=== PATIENT | male | born 1975 | race Caucasian/White ===

== ENCOUNTER → 2023-04-25 | Outpatient (CLI) | payer BC, OTHER ==
[~2023-04-25] MED LIST: MOTR200T4; RYZOLT
== END ==
LOC: M SLEEP HO 10:34
PROVIDERS: ATTEND Nurse Practitioner Family
DX: R40.0 Somnolence (principal)

== ENCOUNTER 2023-07-20 10:54 | Day surgery (SDC) | payer BC, OTHER ==
[~2023-07-20] VITALS: Ht 180.3 cm; Wt 112.9 kg
[~2023-07-20 10:54] MED LIST changes: +ECOT81TA5 PO; +MELO15TA28 PO; +METO1TAB33 PO
[2023-07-20] MEDS: NS 1,000 ML IV ONE (11:09)
[2023-07-20] MEDS ORDERED: propofoL 200 MG/20 ML VIAL As Ordered ONE (11:50)
[2023-07-20 12:59] VITALS: TEMP 97.5
[2023-07-20 13:19] VITALS: BP 160/93; O2SAT 95
== END 2023-07-20 13:22 | disposition home or self-care (01) ==
LOC: M OPP 10:54
PROVIDERS: ATTEND Internal Medicine Gastroenterology
DX: Z12.11 Encounter for screening for malignant neoplasm of colon (principal); D12.6 Benign neoplasm of colon, unspecified; K63.89 Other specified diseases of intestine; K64.4 Residual hemorrhoidal skin tags; K64.8 Other hemorrhoids; K22.89 Other specified disease of esophagus; K29.70 Gastritis, unspecified, without bleeding; K20.0 Eosinophilic esophagitis; R13.10 Dysphagia, unspecified; I48.91 Unspecified atrial fibrillation; G47.30 Sleep apnea, unspecified; Z79.1 Long term (current) use of non-steroidal anti-inflammatories (NSAID); Z79.82 Long term (current) use of aspirin; Z79.899 Other long term (current) drug therapy

== ENCOUNTER → 2023-08-07 | Outpatient (CLI) | payer BC, OTHER | LOC: M SLEEP 20:00 | PROVIDERS: ATTEND Nurse Practitioner Family | DX: G47.33 Obstructive sleep apnea (adult) (pediatric) (principal) ==

== ENCOUNTER 2023-10-18 09:31 | Day surgery (SDC) | payer BC ==
[~2023-10-18] VITALS: Ht 180.3 cm; Wt 135.3 kg
[2023-10-18] MEDS: NS 1,000 ML IV ONE (06:00)
[~2023-10-18 09:31] MED LIST changes: +OMEP40CA5 PO; +SUCR1TAB56 PO
[2023-10-18] MEDS ORDERED: fentaNYL 100 MCG/2 ML INJECTION As Ordered ONE (10:27)
[2023-10-18] MEDS ORDERED: propofoL 200 MG/20 ML VIAL As Ordered ONE (10:27)
[2023-10-18 11:36] VITALS: TEMP 97.5
[2023-10-18 11:58] VITALS: BP 158/94; O2SAT 98
== END 2023-10-18 12:08 | disposition home or self-care (01) ==
LOC: M OPP 09:31
PROVIDERS: ATTEND Internal Medicine Gastroenterology
DX: K22.89 Other specified disease of esophagus (principal); K29.70 Gastritis, unspecified, without bleeding; R07.89 Other chest pain; G47.30 Sleep apnea, unspecified; Z99.89 Dependence on other enabling machines and devices; I48.91 Unspecified atrial fibrillation; I10 Essential (primary) hypertension; Z79.82 Long term (current) use of aspirin; Z79.899 Other long term (current) drug therapy; F17.220 Nicotine dependence, chewing tobacco, uncomplicated
CPT/HCPCS: 43239; 88305; J3010

== ENCOUNTER 2023-10-31 13:27 | Emergency (ER) | payer BC ==
[~2023-10-31] VITALS: Ht 180.3 cm; Wt 113.0 kg
[2023-10-31] MEDS ORDERED: LISI10TA24 (14:08)
[2023-10-31 14:47] LABS: BASO # 0.1 10^3/uL (0.0-0.2); BASO % 0.6 % (0.0-1.0); EOS # 0.2 10^3/uL (0.0-0.5); EOS % 2.8 % (0.0-3.0); HEMOGLOBIN 15.7 g/dl (13.5-17.5); LYMPH # 1.5 10^3/uL (1.5-5.0); LYMPH % 19.1 % (24.0-44.0); MEAN CORPUSCULAR HEMOGLOBIN 31.3 pg (27.0-33.0); MEAN CORPUSCULAR HGB CONC 34.9 g/dl (32.0-36.5); MEAN CORPUSCULAR VOLUME 89.6 fl (80.0-96.0); MONO # 0.6 10^3/uL (0.0-0.8); MONO % 7.4 % (2.0-8.0); NEUTROPHILS # 5.4 10^3/uL (1.5-8.5); NEUTROPHILS % 69.7 % (36.0-66.0); PLATELET COUNT, AUTOMATED 238 10^3/uL (150-450); RED BLOOD COUNT 5.02 10^6/uL (4.30-6.10); WHITE BLOOD COUNT 7.7 10^3/uL (4.0-10.0)
[2023-10-31 15:14] LABS: ALBUMIN 3.9 G/DL (3.2-5.2); ALKALINE PHOSPHATASE 80 U/L (46-116); ALT/SGPT 25 U/L (7.0-40); AST/SGOT 16 U/L (<34); BILIRUBIN,TOTAL 1.1 MG/DL (0.3-1.2); BLOOD UREA NITROGEN 10 MG/DL (9-23); CALCIUM LEVEL 9.3 MG/DL (8.5-10.1); CARBON DIOXIDE LEVEL 29 MMOL/L (20-31); CHLORIDE LEVEL 106 MMOL/L (98-107); CREATININE FOR GFR 0.77 MG/DL (0.70-1.30); GLOMERULAR FILTRATION RATE > 60.0 (>56); GLUCOSE, FASTING 107 MG/DL (60-100); POTASSIUM SERUM 3.6 MMOL/L (3.5-5.1); SODIUM LEVEL 142 MMOL/L (136-145); TOTAL PROTEIN 7.3 G/DL (5.7-8.2)
[2023-10-31] MEDS ORDERED: ISOVUE-370 76% 100ML VIAL As Ordered ONE (16:29)
[2023-10-31 16:46] LABS: CK-MB VALUE MASS < 1.0 NG/ML (<3.6)
[2023-10-31 16:48] LABS: CPK CREATINE PHOSPHOKINASE 105 U/L (46-171); MB/CK RELATIVE INDEX 0.95 (< OR =4)
[2023-10-31 16:50] LABS: THYROID STIMULATING HORMONE 1.932 uIU/ML (0.55-4.78)
[2023-10-31 16:51] LABS: FREE T4 1.07 NG/DL (0.89-1.76)
[2023-10-31 17:09] LABS: CK-MB VALUE MASS < 1.0 NG/ML (<3.6)
[2023-10-31 17:15] LABS: CPK CREATINE PHOSPHOKINASE 114 U/L (46-171); MB/CK RELATIVE INDEX 0.87 (< OR =4)
[2023-10-31 17:45] VITALS: BP 142/88; TEMP 97.6; O2SAT 95
== END 2023-10-31 17:57 | disposition home or self-care (01) ==
LOC: M ED 13:27
DX: I10 Essential (primary) hypertension (principal); I48.91 Unspecified atrial fibrillation; K21.9 Gastro-esophageal reflux disease without esophagitis; F41.9 Anxiety disorder, unspecified; F17.220 Nicotine dependence, chewing tobacco, uncomplicated; Z79.82 Long term (current) use of aspirin; Z79.899 Other long term (current) drug therapy
CPT/HCPCS: 71275; 74177; 80053; 82550; 82553; 84439; 84443; 84484; 85025; 93005; 99284; Q9967

== ENCOUNTER 2024-02-12 05:19 | Emergency (ER) | payer BC ==
[~2024-02-12] VITALS: Ht 180.3 cm; Wt 112.5 kg
[~2024-02-12 05:19] MED LIST changes: +LISI10TA24 PO
[2024-02-12 05:58] LABS: BASO # 0.1 10^3/uL (0.0-0.2); BASO % 0.7 % (0.0-1.0); EOS % 10.8 % (0.0-3.0); HEMOGLOBIN 14.4 g/dl (13.5-17.5); LYMPH # 1.6 10^3/uL (1.5-5.0); LYMPH % 17.4 % (24.0-44.0); MEAN CORPUSCULAR HGB CONC 33.5 g/dl (32.0-36.5); MEAN CORPUSCULAR VOLUME 92.5 fl (80.0-96.0); MONO # 0.6 10^3/uL (0.0-0.8); MONO % 6.7 % (2.0-8.0); NEUTROPHILS # 5.8 10^3/uL (1.5-8.5); PLATELET COUNT, AUTOMATED 243 10^3/uL (150-450); RED BLOOD COUNT 4.65 10^6/uL (4.30-6.10); WHITE BLOOD COUNT 9.1 10^3/uL (4.0-10.0)
[2024-02-12 06:01] LABS: APPEARANCE, URINE CLEAR (CLEAR); BACTERIA, URINE AUTO NEGATIVE (NEGATIVE); BILIRUBIN, URINE AUTO NEGATIVE (NEGATIVE); BLOOD, URINE BLOOD NEGATIVE (NEGATIVE); COLOR, URINE STRAW (YELLOW); GLUCOSE, URINE (UA) AUTO NEGATIVE (NEGATIVE); KETONE, URINE AUTO NEGATIVE (NEGATIVE); LEUKOCYTE ESTERASE, URINE AUTO NEGATIVE (NEGATIVE); NITRITE, URINE AUTO NEGATIVE (NEGATIVE); PROTEIN, URINE AUTO NEGATIVE (NEGATIVE); RBC, URINE AUTO 0 /HPF (0-3); SPECIFIC GRAVITY URINE AUTO 1.008 (1.002-1.035); SQUAMOUS EPITHELIAL CELL UR AU 0 /HPF (0-6); UROBILINOGEN, URINE AUTO 0.2 mg/dL (0.0-2.0); WBC, URINE AUTO 0 /HPF (0-3)
[2024-02-12 06:22] LABS: ALBUMIN 3.8 G/DL (3.2-5.2); ALKALINE PHOSPHATASE 85 U/L (46-116); ALT/SGPT 27 U/L (7.0-40); AST/SGOT 18 U/L (<34); BILIRUBIN,DIRECT 0.2 MG/DL (<0.4); BILIRUBIN,TOTAL 0.5 MG/DL (0.3-1.2); BLOOD UREA NITROGEN 19 MG/DL (9-23); CALCIUM LEVEL 9.1 MG/DL (8.5-10.1); CARBON DIOXIDE LEVEL 31 MMOL/L (20-31); CHLORIDE LEVEL 104 MMOL/L (98-107); CREATININE FOR GFR 0.85 MG/DL (0.70-1.30); GLOMERULAR FILTRATION RATE > 60.0 (>56); GLUCOSE, FASTING 135 MG/DL (60-100); POTASSIUM SERUM 3.6 MMOL/L (3.5-5.1); SODIUM LEVEL 138 MMOL/L (136-145); TOTAL PROTEIN 7.6 G/DL (5.7-8.2)
[2024-02-12] MEDS ORDERED: MULT-40 PO (08:48)
[2024-02-12] MEDS ORDERED: OMEP-173 PO (08:48)
[2024-02-12] MEDS ORDERED: HOME MED LIST COMPLETE! XX SCH (08:50)
[2024-02-12 10:05] VITALS: BP 133/87; TEMP 97.2; O2SAT 98
== END 2024-02-12 10:07 | disposition home or self-care (01) ==
LOC: M ED 05:19
DX: I10 Essential (primary) hypertension (principal); I48.0 Paroxysmal atrial fibrillation; F41.9 Anxiety disorder, unspecified

== ENCOUNTER → 2024-07-17 | Outpatient (CLI) | payer BC ==
[~2024-07-17] MED LIST changes: +MULT-40 PO; +OMEP-173 PO
== END ==
LOC: M RAD 15:35
PROVIDERS: ATTEND Internal Medicine
DX: R19.02 Left upper quadrant abdominal swelling, mass and lump (principal); R10.12 Left upper quadrant pain

== ENCOUNTER 2024-08-27 17:02 | Emergency (ER) | payer BC ==
[~2024-08-27] VITALS: Ht 180.3 cm; Wt 114.8 kg
[2024-08-27 17:32] LABS: BASO # 0.1 10^3/uL (0.0-0.2); BASO % 0.6 % (0.0-1.0); EOS # 0.2 10^3/uL (0.0-0.5); EOS % 2.6 % (0.0-3.0); HEMATOCRIT 44.2 % (42.0-52.0); HEMOGLOBIN 14.9 g/dl (13.5-17.5); LYMPH % 22.5 % (24.0-44.0); MEAN CORPUSCULAR HEMOGLOBIN 31.4 pg (27.0-33.0); MEAN CORPUSCULAR HGB CONC 33.7 g/dl (32.0-36.5); MEAN CORPUSCULAR VOLUME 93.1 fl (80.0-96.0); MONO # 0.6 10^3/uL (0.0-0.8); MONO % 6.8 % (2.0-8.0); NEUTROPHILS # 5.9 10^3/uL (1.5-8.5); NEUTROPHILS % 67.3 % (36.0-66.0); PLATELET COUNT, AUTOMATED 282 10^3/uL (150-450); RED BLOOD COUNT 4.75 10^6/uL (4.30-6.10); WHITE BLOOD COUNT 8.8 10^3/uL (4.0-10.0)
[2024-08-27 18:05] LABS: LIPASE 38 U/L (12-53)
[2024-08-27 18:07] LABS: ALKALINE PHOSPHATASE 72 U/L (40-129); ALT/SGPT 29 U/L (7.0-40); AST/SGOT 23 U/L (<34); BILIRUBIN,DIRECT 0.1 MG/DL (<0.4); BILIRUBIN,TOTAL 0.5 MG/DL (0.3-1.2); BLOOD UREA NITROGEN 11 MG/DL (9-23); CALCIUM LEVEL 9.2 MG/DL (8.5-10.1); CARBON DIOXIDE LEVEL 31 MMOL/L (20-31); CHLORIDE LEVEL 102 MMOL/L (98-107); CK-MB VALUE MASS < 1.0 NG/ML (<3.6); CREATININE FOR GFR 0.92 MG/DL (0.70-1.30); GLOMERULAR FILTRATION RATE > 90.0 (>56); GLUCOSE, FASTING 103 MG/DL (60-100); POTASSIUM SERUM 3.6 MMOL/L (3.5-5.1); SODIUM LEVEL 140 MMOL/L (136-145); TOTAL PROTEIN 7.7 G/DL (5.7-8.2)
[2024-08-27 18:09] LABS: FREE T4 1.16 NG/DL (0.89-1.76); THYROID STIMULATING HORMONE 1.873 uIU/ML (0.55-4.78)
[2024-08-27 18:17] LABS: CPK CREATINE PHOSPHOKINASE 95 U/L (46-171); MB/CK RELATIVE INDEX 1.05 (< OR =4)
[2024-08-27 19:09] LABS: CK-MB VALUE MASS < 1.0 NG/ML (<3.6)
[2024-08-27 19:12] LABS: CPK CREATINE PHOSPHOKINASE 88 U/L (46-171); MB/CK RELATIVE INDEX 1.13 (< OR =4)
[2024-08-27] MEDS ORDERED: ISOVUE-370 76% 100ML VIAL As Ordered ONE (19:25)
[2024-08-27 21:45] VITALS: BP 124/71; O2SAT 96
[2024-08-27 21:54] VITALS: TEMP 98.6
== END 2024-08-27 21:53 | disposition home or self-care (01) ==
LOC: M ED 17:02
DX: R07.9 Chest pain, unspecified (principal); I48.91 Unspecified atrial fibrillation; I10 Essential (primary) hypertension; K21.9 Gastro-esophageal reflux disease without esophagitis; F41.9 Anxiety disorder, unspecified; Z79.82 Long term (current) use of aspirin; Z79.899 Other long term (current) drug therapy
CPT/HCPCS: 70450; 71045; 71275; 72125; 80048; 80076; 82550; 82553; 83690; 83880; 84439; 84443; 84484; 85025; 85730; 93005; 99284; Q9967

== ENCOUNTER 2024-08-30 18:36 | Emergency (ER) | payer BC ==
[~2024-08-30] VITALS: Ht 180.3 cm; Wt 113.6 kg
[2024-08-30] MEDS ORDERED: AMLO1TAB24 (18:49)
[2024-08-30] MEDS ORDERED: OLME1TAB91 PO (18:49)
[2024-08-30 19:06] LABS: BASO % 0.5 % (0.0-1.0); EOS # 0.1 10^3/uL (0.0-0.5); EOS % 1.7 % (0.0-3.0); HEMATOCRIT 42.2 % (42.0-52.0); HEMOGLOBIN 14.6 g/dl (13.5-17.5); LYMPH # 1.4 10^3/uL (1.5-5.0); LYMPH % 17.3 % (24.0-44.0); MEAN CORPUSCULAR HEMOGLOBIN 31.1 pg (27.0-33.0); MEAN CORPUSCULAR HGB CONC 34.6 g/dl (32.0-36.5); MEAN CORPUSCULAR VOLUME 89.8 fl (80.0-96.0); MONO # 0.6 10^3/uL (0.0-0.8); MONO % 7.6 % (2.0-8.0); NEUTROPHILS # 5.8 10^3/uL (1.5-8.5); NEUTROPHILS % 72.7 % (36.0-66.0); PLATELET COUNT, AUTOMATED 241 10^3/uL (150-450)
[2024-08-30 19:31] LABS: ALBUMIN 3.8 G/DL (3.2-5.2); ALKALINE PHOSPHATASE 69 U/L (40-129); ALT/SGPT 28 U/L (7.0-40); AST/SGOT 17 U/L (<34); BILIRUBIN,DIRECT 0.2 MG/DL (<0.4); BILIRUBIN,TOTAL 0.5 MG/DL (0.3-1.2); BLOOD UREA NITROGEN 11 MG/DL (9-23); CALCIUM LEVEL 8.8 MG/DL (8.5-10.1); CARBON DIOXIDE LEVEL 30 MMOL/L (20-31); CHLORIDE LEVEL 102 MMOL/L (98-107); CK-MB VALUE MASS < 1.0 NG/ML (<3.6); CREATININE FOR GFR 0.91 MG/DL (0.70-1.30); GLOMERULAR FILTRATION RATE > 90.0 (>56); GLUCOSE, FASTING 128 MG/DL (60-100); POTASSIUM SERUM 3.5 MMOL/L (3.5-5.1); SODIUM LEVEL 138 MMOL/L (136-145); TOTAL PROTEIN 7.3 G/DL (5.7-8.2)
[2024-08-30 19:32] LABS: FREE T4 1.16 NG/DL (0.89-1.76)
[2024-08-30 19:33] LABS: THYROID STIMULATING HORMONE 1.614 uIU/ML (0.55-4.78)
[2024-08-30 19:35] LABS: CPK CREATINE PHOSPHOKINASE 62 U/L (46-171); MB/CK RELATIVE INDEX 1.61 (< OR =4)
[2024-08-30] MEDS: MIDAZOLAM INJ 2MG/2ML VIAL IV STA (20:47)
[2024-08-30] MEDS ORDERED: HYDR-643 PO (23:52)
[2024-08-31 00:11] VITALS: BP 138/82; TEMP 96.9; O2SAT 97
[2024-08-31] MEDS: MIDAZOLAM INJ 2MG/2ML VIAL IV ONE (00:16)
== END 2024-08-31 00:15 | disposition home or self-care (01) ==
LOC: EDBD 18:36 → M ED 18:36
DX: R07.89 Other chest pain (principal); G62.9 Polyneuropathy, unspecified; I48.91 Unspecified atrial fibrillation; I10 Essential (primary) hypertension; K21.9 Gastro-esophageal reflux disease without esophagitis; F17.220 Nicotine dependence, chewing tobacco, uncomplicated; Z79.82 Long term (current) use of aspirin; Z79.899 Other long term (current) drug therapy
CPT/HCPCS: 70551; 71045; 72141; 80048; 80076; 82550; 82553; 84439; 84443; 84484; 85025; 87486; 87581; 87633; 87798; 93005; 93041; 94760; 96374; 99285; J2250

== ENCOUNTER 2025-03-17 17:00 | Emergency (ER) | payer BC ==
[~2025-03-17] VITALS: Ht 180.3 cm; Wt 110.9 kg
[~2025-03-17 17:00] MED LIST changes: +AMLO1TAB24; +HYDR-643 PO; +OLME1TAB91 PO
[2025-03-17] MEDS ORDERED: OLME1TAB92 (17:12)
[2025-03-17 17:38] LABS: BASO # 0.1 10^3/uL (0.0-0.2); BASO % 0.5 % (0.0-1.0); EOS # 0.4 10^3/uL (0.0-0.5); EOS % 4.0 % (0.0-3.0); LYMPH # 1.8 10^3/uL (1.5-5.0); LYMPH % 18.9 % (24.0-44.0); MONO # 0.7 10^3/uL (0.0-0.8); MONO % 6.8 % (2.0-8.0); NEUTROPHILS # 6.7 10^3/uL (1.5-8.5); NEUTROPHILS % 69.5 % (36.0-66.0); PLATELET COUNT, AUTOMATED 254 10^3/uL (150-450)
[2025-03-17 17:58] LABS: CK-MB VALUE MASS < 1.0 NG/ML (<3.6)
[2025-03-17 18:00] LABS: CALCIUM LEVEL 9.3 MG/DL (8.5-10.1); CARBON DIOXIDE LEVEL 31 MMOL/L (20-31); CHLORIDE LEVEL 100 MMOL/L (98-107); CPK CREATINE PHOSPHOKINASE 66 U/L (46-171); CREATININE FOR GFR 0.91 MG/DL (0.70-1.30); GLOMERULAR FILTRATION RATE > 90.0 (>56); POTASSIUM SERUM 3.8 MMOL/L (3.5-5.1); SODIUM LEVEL 142 MMOL/L (136-145)
[2025-03-17] MEDS ORDERED: NITROGLYCERIN 0.4 MG SUBL TABLET SL PRN (18:15)
[2025-03-17] MEDS: ASPIRIN 81 MG CHEWABLE TABLET PO ONE (18:20)
[2025-03-17] MEDS ORDERED: ISOVUE-370 76% 100 ML VIAL As Ordered ONE (18:21)
[2025-03-17 18:30] LABS: ALT/SGPT 35 U/L (7.0-40); AST/SGOT 26 U/L (<34)
[2025-03-17 19:00] LABS: CK-MB VALUE MASS < 1.0 NG/ML (<3.6)
[2025-03-17 19:02] LABS: CPK CREATINE PHOSPHOKINASE 61 U/L (46-171)
[2025-03-17 20:30] VITALS: O2SAT 98
[2025-03-17 21:25] VITALS: BP 130/80; TEMP 96.2; O2SAT 95
== END 2025-03-17 21:32 | disposition home or self-care (01) ==
LOC: M ED 17:00
DX: I10 Essential (primary) hypertension (principal); S22.32XA Fracture of one rib, left side, initial encounter for closed fracture; X58.XXXA Exposure to other specified factors, initial encounter; Y92.9 Unspecified place or not applicable; Y93.9 Activity, unspecified; Y99.9 Unspecified external cause status; R91.8 Other nonspecific abnormal finding of lung field; K80.20 Calculus of gallbladder without cholecystitis without obstruction; K57.30 Diverticulosis of large intestine without perforation or abscess without bleeding; K76.89 Other specified diseases of liver; K21.9 Gastro-esophageal reflux disease without esophagitis; F17.290 Nicotine dependence, other tobacco product, uncomplicated; Z79.82 Long term (current) use of aspirin; Z79.899 Other long term (current) drug therapy
CPT/HCPCS: 70450; 71045; 71275; 74177; 80048; 80076; 82550; 82553; 83690; 83880; 84484; 85025; 87486; 87581; 87633; 87798; 93005; 93041; 94760; 99285; Q9967

== ENCOUNTER 2025-03-28 18:52 | Emergency (ER) | payer BC ==
[~2025-03-28 18:52] MED LIST changes: +OLME1TAB92
[2025-03-28 18:55] VITALS: TEMP 97.9
[2025-03-28 19:25] LABS: BASO # 0.1 10^3/uL (0.0-0.2); BASO % 0.6 % (0.0-1.0); EOS # 0.3 10^3/uL (0.0-0.5); EOS % 3.0 % (0.0-3.0); LYMPH # 2.2 10^3/uL (1.5-5.0); LYMPH % 21.2 % (24.0-44.0); MONO # 0.8 10^3/uL (0.0-0.8); MONO % 7.6 % (2.0-8.0); NEUTROPHILS # 6.8 10^3/uL (1.5-8.5); NEUTROPHILS % 67.3 % (36.0-66.0); PLATELET COUNT, AUTOMATED 240 10^3/uL (150-450)
[2025-03-28 19:53] LABS: CK-MB VALUE MASS < 1.0 NG/ML (<3.6)
[2025-03-28 19:55] LABS: ALT/SGPT 29 U/L (7.0-40); AST/SGOT 26 U/L (<34); CALCIUM LEVEL 8.8 MG/DL (8.5-10.1); CARBON DIOXIDE LEVEL 26 MMOL/L (20-31); CHLORIDE LEVEL 105 MMOL/L (98-107); CREATININE FOR GFR 0.84 MG/DL (0.70-1.30); GLOMERULAR FILTRATION RATE > 90.0 (>56); POTASSIUM SERUM 3.8 MMOL/L (3.5-5.1); SODIUM LEVEL 142 MMOL/L (136-145)
[2025-03-28 20:02] LABS: ETHYL ALCOHOL (ETHANOL) < 0.003 % (0.000-0.010)
[2025-03-28 20:03] LABS: SALICYLATE LEVEL < 3.0 MG/DL (<30)
[2025-03-28 20:07] LABS: CPK CREATINE PHOSPHOKINASE 98 U/L (46-171)
[2025-03-28 20:30] LABS: VENOUS BASE EXCESS 2.3 (-2.0-2.0); VENOUS HCO3 26.5 MMOL/L (23.0-27.0); VENOUS O2 SATURATION 94.6 % (60.0-80.0); VENOUS PARTIAL PRESSURE CO2 39.7 mmHg (38.0-50.0); VENOUS PARTIAL PRESSURE O2 70.4 mmHg (30.0-50.0); VENOUS PH 7.442 UNITS (7.330-7.430); VENOUS STANDARD HCO3 26.4 MMOL/L; VENOUS TOTAL CO2 27.7 MMOL/L (24.0-28.0)
[2025-03-28 20:39] LABS: MAGNESIUM LEVEL 2.0 MG/DL (1.8-2.4)
[2025-03-28] MEDS: NS (Normal Saline) 0.9% 1,000 ML IV ONE (20:41)
[2025-03-28 20:43] LABS: FREE T4 1.15 NG/DL (0.89-1.76)
[2025-03-28 22:12] LABS: KETONE, URINE AUTO RFX NEGATIVE (NEGATIVE); LEUKOCYTE ESTERASE UR AUTO RFX NEGATIVE (NEGATIVE); MUCUS, URINE RFX SMALL (NEGATIVE); NITRITE, URINE AUTO RFX NEGATIVE (NEGATIVE); RBC, URINE AUTO RFX 0 /HPF (0-3); SQUAM EPITHELIAL CELL UR AURFX 0 /HPF (0-6); WBC, URINE AUTO RFX 1 /HPF (0-3)
[2025-03-28 22:32] LABS: AMPHETAMINES LEVEL URINE NEGATIVE (NEGATIVE); BARBITURATES URINE NEGATIVE (NEGATIVE); BENZODIAZEPINES URINE NEGATIVE (NEGATIVE); CANNABINOIDS URINE NEGATIVE (NEGATIVE); COCAINE METABOLITE URINE NEGATIVE (NEGATIVE); METHADONE URINE NEGATIVE (NEGATIVE); OPIATES URINE NEGATIVE (NEGATIVE); PHENCYCLIDINE URINE NEGATIVE (NEGATIVE)
[2025-03-28 22:35] LABS: CK-MB VALUE MASS < 1.0 NG/ML (<3.6)
[2025-03-28 22:41] LABS: CPK CREATINE PHOSPHOKINASE 89 U/L (46-171)
[2025-03-28] MEDS ORDERED: HYDR-3363 PO (23:36)
[2025-03-29] VITALS: BP 149/89; O2SAT 95
== END 2025-03-29 00:18 | disposition home or self-care (01) ==
LOC: M ED 18:52
DX: I48.91 Unspecified atrial fibrillation (principal); F41.1 Generalized anxiety disorder; I10 Essential (primary) hypertension; K21.9 Gastro-esophageal reflux disease without esophagitis; K80.20 Calculus of gallbladder without cholecystitis without obstruction; R16.1 Splenomegaly, not elsewhere classified; Z79.899 Other long term (current) drug therapy
CPT/HCPCS: 70450; 71045; 71275; 80048; 80076; 80143; 80307; 81001; 82077; 82140; 82550; 82553; 82803; 83690; 83735; 84439; 84443; 84484; 85025; 93005; 93041; 94760; 96374; 99285; J2060

== ENCOUNTER 2025-04-12 20:23 | Emergency (ER) | payer BC ==
[~2025-04-12] VITALS: Ht 180.3 cm; Wt 110.2 kg
[~2025-04-12 20:23] MED LIST changes: +HYDR-3363 PO
[2025-04-12 20:57] LABS: BASO # 0.1 10^3/uL (0.0-0.2); BASO % 0.6 % (0.0-1.0); EOS # 0.3 10^3/uL (0.0-0.5); EOS % 3.0 % (0.0-3.0); LYMPH # 2.5 10^3/uL (1.5-5.0); LYMPH % 25.4 % (24.0-44.0); MONO # 0.7 10^3/uL (0.0-0.8); MONO % 7.5 % (2.0-8.0); NEUTROPHILS # 6.2 10^3/uL (1.5-8.5); NEUTROPHILS % 63.2 % (36.0-66.0); PLATELET COUNT, AUTOMATED 231 10^3/uL (150-450)
[2025-04-12 21:26] LABS: CK-MB VALUE MASS < 1.0 NG/ML (<3.6)
[2025-04-12 21:29] LABS: ALT/SGPT 33 U/L (7.0-40); AST/SGOT 27 U/L (<34); CALCIUM LEVEL 8.7 MG/DL (8.5-10.1); CARBON DIOXIDE LEVEL 29 MMOL/L (20-31); CHLORIDE LEVEL 103 MMOL/L (98-107); CREATININE FOR GFR 0.83 MG/DL (0.70-1.30); GLOMERULAR FILTRATION RATE > 90.0 (>56); INR 0.98; POTASSIUM SERUM 3.7 MMOL/L (3.5-5.1); SODIUM LEVEL 142 MMOL/L (136-145)
[2025-04-12 21:37] LABS: CPK CREATINE PHOSPHOKINASE 80 U/L (46-171)
[2025-04-12 21:56] LABS: C REACTIVE PROTEIN QUANTITATIV < 0.50 MG/DL (<1.0)
[2025-04-12] MEDS ORDERED: ISOVUE-370 76% 100 ML VIAL As Ordered ONE (22:26)
[2025-04-12 22:41] LABS: CK-MB VALUE MASS < 1.0 NG/ML (<3.6)
[2025-04-12 22:44] LABS: CPK CREATINE PHOSPHOKINASE 76 U/L (46-171)
[2025-04-13] MEDS ORDERED: METO5TAB2 PO (00:08)
[2025-04-13 00:23] VITALS: BP 137/83; TEMP 98.4; O2SAT 99
== END 2025-04-13 00:28 | disposition home or self-care (01) ==
LOC: M ED 20:23
DX: I10 Essential (primary) hypertension (principal); R07.89 Other chest pain; K80.20 Calculus of gallbladder without cholecystitis without obstruction; R16.1 Splenomegaly, not elsewhere classified; K76.0 Fatty (change of) liver, not elsewhere classified; I48.91 Unspecified atrial fibrillation; K21.9 Gastro-esophageal reflux disease without esophagitis; F41.1 Generalized anxiety disorder; G47.33 Obstructive sleep apnea (adult) (pediatric); Z79.82 Long term (current) use of aspirin; Z79.899 Other long term (current) drug therapy
CPT/HCPCS: 36415; 71045; 71275; 74177; 80048; 80076; 82550; 82553; 83880; 84443; 84484; 85025; 85610; 85652; 85730; 86140; 87486; 87581; 87633; 87798; 93005; 93041; 94760; 99285; Q9967

== ENCOUNTER 2025-04-15 15:29 | Emergency (ER) | payer BC ==
[~2025-04-15] VITALS: Ht 180.3 cm; Wt 106.7 kg
[~2025-04-15 15:29] MED LIST changes: +METO5TAB2 PO
[2025-04-15 16:26] LABS: BASO # 0.1 10^3/uL (0.0-0.2); BASO % 0.5 % (0.0-1.0); EOS # 0.2 10^3/uL (0.0-0.5); EOS % 1.8 % (0.0-3.0); LYMPH # 1.3 10^3/uL (1.5-5.0); LYMPH % 12.8 % (24.0-44.0); MONO # 0.6 10^3/uL (0.0-0.8); MONO % 6.1 % (2.0-8.0); NEUTROPHILS # 8.1 10^3/uL (1.5-8.5); NEUTROPHILS % 78.5 % (36.0-66.0); PLATELET COUNT, AUTOMATED 266 10^3/uL (150-450)
[2025-04-15 16:55] LABS: CK-MB VALUE MASS < 1.0 NG/ML (<3.6)
[2025-04-15 17:06] LABS: ALT/SGPT 31 U/L (7.0-40); AST/SGOT 25 U/L (<34); CALCIUM LEVEL 9.0 MG/DL (8.5-10.1); CARBON DIOXIDE LEVEL 28 MMOL/L (20-31); CHLORIDE LEVEL 100 MMOL/L (98-107); CPK CREATINE PHOSPHOKINASE 76 U/L (46-171); CREATININE FOR GFR 0.88 MG/DL (0.70-1.30); GLOMERULAR FILTRATION RATE > 90.0 (>56); MAGNESIUM LEVEL 2.0 MG/DL (1.8-2.4); POTASSIUM SERUM 3.5 MMOL/L (3.5-5.1); SODIUM LEVEL 140 MMOL/L (136-145)
[2025-04-15 18:11] LABS: CK-MB VALUE MASS < 1.0 NG/ML (<3.6)
[2025-04-15 18:14] LABS: CPK CREATINE PHOSPHOKINASE 77 U/L (46-171)
[2025-04-15 18:15] VITALS: BP 128/83
[2025-04-15] MEDS: METOPROLOL SUCC. 100 MG *XL* TAB PO ONE (18:15)
[2025-04-15] MEDS: NS 500 ML IV ONE (18:16)
[2025-04-15] MEDS ORDERED: ISOVUE-370 76% 100 ML VIAL As Ordered ONE (18:19)
[2025-04-15] MEDS ORDERED: CIPR-249 PO (19:37)
[2025-04-15] MEDS ORDERED: METR-265 PO (19:38)
[2025-04-15] MEDS: CIPROFLOXACIN 500 MG TABLET PO ONE (19:51)
[2025-04-15 19:56] VITALS: BP 143/91; TEMP 97.9; O2SAT 97
== END 2025-04-15 20:02 | disposition home or self-care (01) ==
LOC: M ED 15:29
DX: R00.2 Palpitations (principal); K52.9 Noninfective gastroenteritis and colitis, unspecified; I48.91 Unspecified atrial fibrillation; I10 Essential (primary) hypertension; K21.9 Gastro-esophageal reflux disease without esophagitis; F41.1 Generalized anxiety disorder; G47.33 Obstructive sleep apnea (adult) (pediatric); F17.220 Nicotine dependence, chewing tobacco, uncomplicated; Z79.82 Long term (current) use of aspirin; Z79.899 Other long term (current) drug therapy
CPT/HCPCS: 71275; 74177; 80048; 80076; 82550; 82553; 83690; 83735; 84484; 85025; 87507; 93005; 93041; 94760; 96360; 96361; 99285; Q9967